=== PATIENT | male | born 2000 | race Caucasian/White ===

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

== ENCOUNTER 2023-07-26 15:17 | Inpatient (IN) | payer BC, OTHER ==
[2023-07-26] MEDS ORDERED: SODIUM CHLORIDE 0.9% 1,000 ML IV ONE (16:10)
[2023-07-26] MEDS ORDERED: SODIUM CHLORIDE 0.9% 500 ML 500 ML IV ONE (16:10)
[2023-07-26 16:31] LABS: Basophils # (A) 0.1 k/uL (0-0.2); Basophils % (A) 1 %; Eosinophils # (A) 0.2 k/uL (0-0.7); Eosinophils % (A) 3 %; HCT 53.7 % (39.0-53.0); HGB 18.9 gm/dL (13.0-17.5); Lymphocytes # (A) 1.5 k/uL (1.0-4.8); Lymphocytes % (A) 19 %; MCH 29.8 pg (25.0-35.0); MCHC 35.3 g/dL (31.0-37.0); MCV 84.4 fL (80.0-100.0); Mean Platelet Volume 7.8; Monocytes # (A) 0.4 k/uL (0-1.0); Monocytes % (A) 5 %; Neutrophils # (A) 5.6 k/uL (1.3-7.7); Neutrophils % (A) 70 %; Platelet Count 326 k/uL (150-450); RBC 6.36 m/uL (4.30-5.90); RDW 12.1 % (11.5-15.5); WBC 7.9 k/uL (3.8-10.6)
--- NOTE | 2023-07-26 16:40 | ED ---
General Adult HPI - General Chief complaint: Recheck/Abnormal Lab/Rx Stated complaint: Dehydration Time Seen by Provider: 07/26/23 15:30 Source: patient, RN notes reviewed, old records reviewed Mode of arrival: ambulatory Limitations: no limitations - History of Present Illness Initial comments: This is a 23-year-old male presents emergency Department from urgent care. Patient went to the urgent care because he was feeling more more fatigued and he became very thirsty over the last few weeks and urinating quite a bit more. At the urgent care and he was told that he had diabetes and his sugar was nonreducible on their meter. Patient was sent in here for new onset diabetes. Patient denies any recent fever chills or cough per patient denies any chest pain difficulty breathing shortest breath. Patient denies any headache per patient denies any abdominal pain patient denies nausea vomiting diarrhea. Patient does have a family history of type 1 diabetes in his mother - Related Data Previous Rx's Medication Instructions Recorded Cyclobenzaprine [Flexeril] 10 mg PO TID PRN #15 tab 08/21/19 Ibuprofen [Motrin] 600 mg PO Q8HR PRN #30 tab 08/21/19 Allergies Allergy/AdvReac Type Severity Reaction Status Date / Time amoxicillin Allergy Unknown Verified 07/26/23 15:21 Childhood Penicillins Allergy Unknown Verified 07/26/23 15:21 Childhood Review of Systems ROS Statement: Those systems with pertinent positive or pertinent negative responses have been documented in the HPI. ROS Other: All systems not noted in ROS Statement are negative. Past Medical History Past Medical History: Asthma History of Any Multi-Drug Resistant Organisms: None Reported Past Surgical History: No Surgical Hx Reported Past Psychological History: No Psychological Hx Reported Smoking Status: Never smoker Past Alcohol Use History: None Reported Past Drug Use History: None Reported General Exam - General Exam Comments Initial Comments: GENERAL: Patient is well-developed and well-nourished. Patient is nontoxic and well- hydrated and is in no acute distress. ENT: Neck is soft and supple. No significant lymphadenopathy is noted. Oropharynx is clear. Dry mucous membranes. Neck has full range of motion without eliciting any pain. EYES: The sclera were anicteric and conjunctiva were pink and moist. Extraocular movements were intact and pupils were equal round and reactive to light. Eyelids were unremarkable. PULMONARY: Unlabored respirations. Good breath sounds bilaterally. No audible rales rhonchi or wheezing was noted. CARDIOVASCULAR: There is a regular rate and rhythm without any murmurs gallops or rubs. ABDOMEN: Soft and nontender with normal bowel sounds. SKIN: Skin is clear with no lesions or rashes and otherwise unremarkable. NEUROLOGIC: Patient is alert and oriented x3. Cranial nerves II through XII are grossly intact. Motor and sensory are also intact. Normal speech, volume and content. Symmetrical smile. MUSCULOSKELETAL: Normal extremities with adequate strength and full range of motion. LYMPHATICS: No significant lymphadenopathy is noted PSYCHIATRIC: Normal psychiatric evaluation. Limitations: no limitations Course Vital Signs 07/26/23 15:19 Temperature 98.1 F Pulse Rate 66 Respiratory 17 Rate Blood Pressure 153/101 O2 Sat by Pulse 98 Oximetry Medical Decision Making - Medical Decision Making EKG is interpreted by myself. EKG shows a sinus rhythm at 62 bpm MD interval 128 QRS interval is 94 QT interval is 411 QTC is 417. Patient has peaked T waves as well as some ST segment elevation relatively diffusely consistent with early re-pole. Patient has no chest pain or difficulty breathing. Was pt. sent in by a medical professional or institution (, PA, SHEET HEATER, urgent care, hospital, or alf...) When possible be specific @ -Sent in by the urgent care Did you speak to anyone other than the patient for history (EMS, parent, family, police, friend...)? What history was obtained from this source @ -No Did you review nursing and triage notes (agree or disagree)? Why? @ -I reviewed and agree with nursing and triage notes Were old charts reviewed (outside hosp., previous admission, EMS record, old EKG, old radiological studies, urgent care reports/EKG's, alf records)? Report findings @ -No old charts were reviewed Differential Diagnosis (chest pain, altered mental status, abdominal pain women, abdominal pain men, vaginal bleeding, weakness, fever, dyspnea, syncope, headache, dizziness, GI bleed, back pain, seizure, CVA, palpatations, mental health, musculoskeletal)? @ -Urinary tract infection, diabetes type 1, diabetes type 2, DKA, polydipsia, dehydration, EKG interpreted by me (3pts min.). @ -As above X-rays interpreted by me (1pt min.). @ -None done CT interpreted by me (1pt min.). @ -None done U/S interpreted by me (1pt. min.). @ -None done What testing was considered but not performed or refused? (CT, X-rays, U/S, labs)? Why? @ -None What meds were considered but not given or refused? Why? @ -None Did you discuss the management of the patient with other professionals (professionals i.e. Dr., PA, SHEET HEATER, lab, RT, psych nurse, director social, hose seamer, teacher, interface control officer, case resource manager)? Give summary @ -I spoke with Dr. Woo she agreed to admit the patient Was smoking cessation discussed for >3mins.? @ -No Was critical care preformed (if so, how long)? @ -5 minutes Were there social determinants of health that impacted care today? How? (Homelessness, low income, unemployed, alcoholism, drug addiction, transportation, low edu. Level, literacy, decrease access to med. care, assisted, rehab)? @ -No Was there de-escalation of care discussed even if they declined (Discuss DNR or withdrawal of care, Hospice)? DNR status @ -No What co-morbidities impacted this encounter? (DM, HTN, Smoking, COPD, CAD, Cancer, CVA, ARF, Chemo, Hep., AIDS, mental health diagnosis, sleep apnea, morbid obesity)? @ -None Was patient admitted / discharged? Hospital course, mention meds given and route, prescriptions, significant lab abnormalities, going to OR and other pertinent info. @ -Patient's blood sugar came back at over 700 patient was started on insulin drip given IV fluids and will be admitted to [facility]. Undiagnosed new problem with uncertain prognosis? @ -No Drug Therapy requiring intensive monitoring for toxicity (Heparin, Nitro, Insulin, Cardizem)? @ -No Were any procedures done? @ -No Diagnosis/symptom? @ -New-onset diabetes Acute, or Chronic, or Acute on Chronic? @ -Acute Uncomplicated (without systemic symptoms) or Complicated (systemic symptoms)? @ -Complicated Side effects of treatment? @ -No Exacerbation, Progression, or Severe Exacerbation? @ -No Poses a threat to life or bodily function? How? (Chest pain, [place], [place], pneumonia, PE, COPD, DKA, ARF, appy, cholecystitis, CVA, Diverticulitis, Homicidal, Suicidal, threat to staff... and all critical care pts) @ -Yes this could lead to significant poor perfusion and end organ dysfunction - Lab Data Result diagrams: 07/26/23 16:15 07/26/23 16:15 Lab Results 07/26/23 07/26/23 07/26/23 Range/Units 16:15 16:15 16:58 WBC 7.9 (3.8-10.6) k/uL RBC 6.36 H (4.30-5.90) m/uL Hgb 18.9 H (13.0-17.5) gm/dL Hct 53.7 H (39.0-53.0) % MCV 84.4 (80.0-100.0) fL MCH 29.8 (25.0-35.0) pg MCHC 35.3 (31.0-37.0) g/dL RDW 12.1 (11.5-15.5) % Plt Count 326 (150-450) k/uL MPV 7.8 Neutrophils % 70 % Lymphocytes % 19 % Monocytes % 5 % Eosinophils % 3 % Basophils % 1 % Neutrophils # 5.6 (1.3-7.7) k/uL Lymphocytes # 1.5 (1.0-4.8) k/uL Monocytes # 0.4 (0-1.0) k/uL Eosinophils # 0.2 (0-0.7) k/uL Basophils # 0.1 (0-0.2) k/uL Sodium 128 L (137-145) mmol/L Potassium 5.3 H (3.5-5.1) mmol/L Chloride 85 L (98-107) mmol/L Carbon Dioxide 22 (22-30) mmol/L Anion Gap 21 mmol/L BUN 23 H (9-20) mg/dL Creatinine 1.12 (0.66-1.25) mg/dL Est GFR (CKD-EPI)AfAm >90 (>60 ml/min/1.73 sqM) Est GFR (CKD-EPI)NonAf >90 (>60 ml/min/1.73 sqM) Glucose 709 H* (74-99) mg/dL Calcium 10.1 (8.4-10.2) mg/dL Total Bilirubin 1.2 (0.2-1.3) mg/dL AST 31 (17-59) U/L ALT 38 (4-49) U/L Alkaline Phosphatase 219 H (38-126) U/L Troponin I <0.012 (0.000-0.034) ng/mL Total Protein 7.8 (6.3-8.2) g/dL Albumin 4.6 (3.5-5.0) g/dL Acetone, Qual Positive (Negative) Critical Care Time Critical Care Time: Yes Total Critical Care Time: 35 Disposition Clinical Impression: New onset type 1 diabetes mellitus, uncontrolled Disposition: ADMITTED IP TO THIS HOSP Referrals: None,Stated [Primary Care Provider] - 1-2 days Time of Disposition: 18:05
[2023-07-26 17:26] LABS: ALT 38 U/L (4-49); AST 31 U/L (17-59); African American GFR (CKD) >90 (>60 ml/min/1.73 sqM); Albumin 4.6 g/dL (3.5-5.0); Alkaline Phosphatase 219 U/L (38-126); Anion Gap 21 mmol/L; Blood Urea Nitrogen 23 mg/dL (9-20); Calcium 10.1 mg/dL (8.4-10.2); Carbon Dioxide 22 mmol/L (22-30); Chloride 85 mmol/L (98-107); Non-African American GFR(CKD) >90 (>60 ml/min/1.73 sqM); Potassium 5.3 mmol/L (3.5-5.1); Sodium 128 mmol/L (137-145); Total Bilirubin 1.2 mg/dL (0.2-1.3); Total Protein 7.8 g/dL (6.3-8.2)
[2023-07-26 17:38] LABS: Glucose 709 mg/dL (74-99)
[2023-07-26] MEDS ORDERED: INSULIN REGULAR BOLUS (FROM DRIP BAG) IV ONE (18:06)
[2023-07-26 18:13] VITALS: RESP 16
[2023-07-26] MEDS ORDERED: SODIUM CHLORIDE 0.9% 1,000 ML IV SCH (18:15)
[2023-07-26] MEDS ORDERED: INSULIN REGULAR 100 UNIT in SODIUM CHLORIDE 0.9% 100 ML IV SCH (18:15)
[2023-07-26 19:04] LABS: ABG Base Excess -5.2 mmol/L; ABG HCO3 21 mmol/L (21-25); ABG Oxygen Saturation 97.2 % (94-97); ABG PCO2 38 mmHg (35-45); ABG PH 7.34 (7.35-7.45); ABG PO2 97 mmHg (83-108); ABG TCO2 22 mmol/L (19-24); Allen Test Performed? Yes
[2023-07-26 19:09] LABS: Appearance,Urine Clear (Clear); Bilirubin,Urine Negative (Negative); Blood,Urine Negative (Negative); Color,Urine Colorless; Glucose,Urine (UA) 4+ (Negative); Leukocyte Esterase,Urine Negative (Negative); Nitrite,Urine Negative (Negative); Protein,Urine Negative (Negative); Urobilinogen,Urine <2.0 mg/dL (<2.0)
[2023-07-26 19:15] LABS: Ketones,Urine 3+ (Negative)
[2023-07-26 19:21] LABS: Glucose,Whole Blood 351 mg/dL (70-110)
[2023-07-26 20:08] LABS: Glucose,Whole Blood 333 mg/dL (70-110)
[2023-07-26 21:06] LABS: African American GFR (CKD) >90 (>60 ml/min/1.73 sqM); Anion Gap 15 mmol/L; Blood Urea Nitrogen 18 mg/dL (9-20); Carbon Dioxide 19 mmol/L (22-30); Chloride 100 mmol/L (98-107); Glucose 272 mg/dL (74-99); Non-African American GFR(CKD) >90 (>60 ml/min/1.73 sqM); Phosphorus 2.8 mg/dL (2.5-4.5); Potassium 3.7 mmol/L (3.5-5.1); Sodium 134 mmol/L (137-145)
[2023-07-26 21:19] LABS: Glucose,Whole Blood 241 mg/dL (70-110)
[2023-07-26] MEDS: D5-0.45% NACL WITH KCL 20MEQ/L 1,000 ML IV SCH (21:43)
[2023-07-26 22:09] LABS: Glucose,Whole Blood 218 mg/dL (70-110)
[2023-07-26 23:07] LABS: Glucose,Whole Blood 232 mg/dL (70-110)
--- NOTE | 2023-07-26 23:36 | P.HPIM ---
History of Present Illness H&P Date: 07/26/23 Patient is a 23-year-old male with a PMH of mild intermittent asthma who presented to the emergency room with complaints of polyuria, polydipsia, thirst, and generalized weakness. Patient has been experiencing these symptoms for the past 1 week. Denies any recent illnesses. Denies any prior history of such symptoms. In the emergency room, the patient's blood glucose was 709, with anion gap 21, sodium 128, potassium 5.3, chloride 85, acetone positive, troponin less than 0.012, and hemoglobin 18.9. She reports feeling better at the time of interview. Also denied experiencing chest discomfort, shortness of breath, fever, chills, cough, nausea, vomiting, abdominal pain, diarrhea. EKG the emergency room revealed sinus rhythm with sinus arrhythmia at [address] segment elevations in inferolateral leads. ED documentation reviewed and case discussed with ED provider. Review of systems: Pertinent positives and negatives as discussed in HPI, a complete review of systems was performed and all other systems are negative. Physical examination: Vital signs reviewed General: non toxic, no distress, appears at stated age, normal weight Derm: no unusual rashes/lesions, warm Head: atraumatic, normocephalic, symmetric Eyes: EOMI, no lid lag, anicteric sclera, pupils equal round reactive to light ENT: Nose and ears atraumatic Neck: No cervical lymphadenopathy, trachea midline, supple Mouth: no lip lesion, mucus membranes moist Cardiovascular: S1S2 reg, no murmur, positive dorsalis pedis pulse bilateral, no edema Lungs: CTA bilateral, no rhonchi, no rales, no accessory muscle use Abdominal: soft, nontender to palpation, no guarding Ext: muscle strength 5 out of 5 in all 4 extremities grossly, no gross muscle atrophy, no contractures, Neuro: CN II-XI grossly intact, no gross focal neuro deficits Psych: Alert, oriented, appropriate affect Assessment: DKA, newly diagnosed diabetes mellitus Hyponatremia, likely pseudo-in setting of hyperglycemia Abnormal EKG, patient denied chest discomfort or shortness of breath Chronic conditions: Mild intermittent asthma Imaging: EKG the emergency room revealed sinus rhythm with sinus arrhythmia at [address] segment elevations in inferolateral leads. Data Review: In the emergency room, the patient's blood glucose was 709, with anion gap 21, sodium 128, potassium 5.3, chloride 85, acetone positive, troponin less than 0.012, and hemoglobin 18.9 Plan: Continue DKA protocol with insulin infusion 0.1 units per kilogram per hour IV fluids with normal saline and D5 half NS once blood sugar improved Monitor electrolytes every 4 hours and blood glucose every hour Diabetes education Patient will need outpatient endocrinology follow-up Replace potassium as needed Patient reports sporadic use of albuterol inhaler DVT prophylaxis: Lovenox subcu The patient is admitted with an anticipated greater than 2 midnight stay for evaluation of DKA CODE STATUS: Full Code Discussed with: Patient Anticipated discharge place: Home Past Medical History Past Medical History: Asthma History of Any Multi-Drug Resistant Organisms: None Reported Past Surgical History: No Surgical Hx Reported Past Anesthesia/Blood Transfusion Reactions: No Reported Reaction Past Psychological History: No Psychological Hx Reported Smoking Status: Never smoker Past Alcohol Use History: None Reported Past Drug Use History: None Reported Medications and Allergies Home Medications Medication Instructions Recorded Confirmed Type No Known Home Medications 07/26/23 07/26/23 History Allergies Allergy/AdvReac Type Severity Reaction Status Date / Time amoxicillin Allergy Unknown Verified 07/26/23 18:09 Childhood Penicillins Allergy Unknown Verified 07/26/23 18:09 Childhood Physical Exam Vitals: Vital Signs Temp Pulse Resp BP Pulse Ox 07/26/23 19:36 98.2 F 84 16 128/70 97 07/26/23 18:05 73 16 132/89 99 07/26/23 15:19 98.1 F 66 17 153/101 98 Intake and Output 07/26/23 07/26/23 07/26/23 06:59 14:59 22:59 Intake Total 14.061 Balance 14.061 Intake: Intake, IV Titration 14.061 Amount Insulin Regular 100 unit 14.061 In Sodium Chloride 0.9% 100 ml @ 0.1 UNITS/KG/HR 5.818 mls/hr IV .[id number] [facility] Rx#:[id number] Other: Weight 57.606 kg Results CBC & Chem 7: 07/26/23 16:15 07/26/23 20:26 Labs: Abnormal Lab Results - Last 24 Hours (Table) 07/26/23 07/26/23 07/26/23 Range/Units 16:15 16:15 18:52 RBC 6.36 H (4.30-5.90) m/uL Hgb 18.9 H (13.0-17.5) gm/dL Hct 53.7 H (39.0-53.0) % ABG pH (7.35-7.45) ABG O2 Saturation (94-97) % Sodium 128 L (137-145) mmol/L Potassium 5.3 H (3.5-5.1) mmol/L Chloride 85 L (98-107) mmol/L Carbon Dioxide (22-30) mmol/L BUN 23 H (9-20) mg/dL Glucose 709 H* (74-99) mg/dL POC Glucose (mg/dL) (70-110) mg/dL Alkaline Phosphatase 219 H (38-126) U/L Urine Glucose (UA) 4+ H (Negative) Urine Ketones 3+ H (Negative) 07/26/23 07/26/23 07/26/23 Range/Units 19:19 20:00 20:03 RBC (4.30-5.90) m/uL Hgb (13.0-17.5) gm/dL Hct (39.0-53.0) % ABG pH 7.34 L (7.35-7.45) ABG O2 Saturation 97.2 H (94-97) % Sodium (137-145) mmol/L Potassium (3.5-5.1) mmol/L Chloride (98-107) mmol/L Carbon Dioxide (22-30) mmol/L BUN (9-20) mg/dL Glucose (74-99) mg/dL POC Glucose (mg/dL) 351 H 333 H (70-110) mg/dL Alkaline Phosphatase (38-126) U/L Urine Glucose (UA) (Negative) Urine Ketones (Negative) 07/26/23 07/26/23 Range/Units 20:26 21:00 RBC (4.30-5.90) m/uL Hgb (13.0-17.5) gm/dL Hct (39.0-53.0) % ABG pH (7.35-7.45) ABG O2 Saturation (94-97) % Sodium 134 L (137-145) mmol/L Potassium (3.5-5.1) mmol/L Chloride (98-107) mmol/L Carbon Dioxide 19 L (22-30) mmol/L BUN (9-20) mg/dL Glucose 272 H (74-99) mg/dL POC Glucose (mg/dL) 241 H (70-110) mg/dL Alkaline Phosphatase (38-126) U/L Urine Glucose (UA) (Negative) Urine Ketones (Negative) Thrombosis Risk Factor Assmnt - Choose All That Apply Any of the Below Risk Factors Present?: No Other Risk Factors: No Other congenital or acquired thrombophilia - If yes, enter type in comment: No Thrombosis Risk Factor Assessment Level: Very Low Risk
[2023-07-26] MEDS: POTASSIUM CHLORIDE ER 20 MEQ TAB.ER PO SCH (23:44)
[2023-07-26] MEDS: POTASSIUM CHLORIDE 10 MEQ in WATER FOR INJECTION 1 100ML.BAG IVPB SCH (23:44)
[2023-07-26 23:56] LABS: Glucose,Whole Blood 175 mg/dL (70-110)
[2023-07-27 00:18] LABS: African American GFR (CKD) >90 (>60 ml/min/1.73 sqM); Anion Gap 7 mmol/L; Blood Urea Nitrogen 17 mg/dL (9-20); Carbon Dioxide 24 mmol/L (22-30); Chloride 104 mmol/L (98-107); Glucose 175 mg/dL (74-99); Non-African American GFR(CKD) >90 (>60 ml/min/1.73 sqM); Potassium 3.4 mmol/L (3.5-5.1); Sodium 135 mmol/L (137-145)
[2023-07-27] MEDS: POTASSIUM CHLORIDE 10 MEQ in WATER FOR INJECTION 1 100ML.BAG IVPB SCH (00:36)
[2023-07-27 01:17] LABS: Glucose,Whole Blood 156 mg/dL (70-110)
[2023-07-27] MEDS: POTASSIUM CHLORIDE ER 20 MEQ TAB.ER PO SCH (01:38)
[2023-07-27 01:59] LABS: Glucose,Whole Blood 210 mg/dL (70-110)
[2023-07-27 03:05] LABS: Glucose,Whole Blood 185 mg/dL (70-110)
[2023-07-27] MEDS: D5-0.45% NACL WITH KCL 20MEQ/L 1,000 ML IV SCH ×2 (03:54→05:44)
[2023-07-27 04:00] LABS: Glucose,Whole Blood 174 mg/dL (70-110)
[2023-07-27 04:50] LABS: African American GFR (CKD) >90 (>60 ml/min/1.73 sqM); Anion Gap 5 mmol/L; Blood Urea Nitrogen 14 mg/dL (9-20); Calcium 8.3 mg/dL (8.4-10.2); Carbon Dioxide 24 mmol/L (22-30); Chloride 106 mmol/L (98-107); Glucose 175 mg/dL (74-99); Non-African American GFR(CKD) >90 (>60 ml/min/1.73 sqM); Potassium 4.4 mmol/L (3.5-5.1); Sodium 135 mmol/L (137-145)
[2023-07-27] MEDS ORDERED: INSULIN NPH 100 UNIT/ML 10 ML VIAL SQ ONE (05:00)
[2023-07-27 05:17] LABS: Glucose,Whole Blood 170 mg/dL (70-110)
[2023-07-27 06:04] LABS: Glucose,Whole Blood 104 mg/dL (70-110)
[2023-07-27] MEDS ORDERED: INSULIN DETEMIR (LEVEMIR) 100 UNIT/ML SYR SQ SCH ×2 (07:00→21:00)
[2023-07-27 07:04] LABS: Glucose,Whole Blood 111 mg/dL (70-110)
[2023-07-27] MEDS: INSULIN ASPART (NovoLOG) 100 UNIT/ML VIAL SQ SCH ×5 (07:07→21:48)
[2023-07-27] MEDS ORDERED: INSULIN ASPART (NovoLOG) 100 UNIT/ML VIAL SQ SCH (07:30)
[2023-07-27 09:33] LABS: Glucose,Whole Blood 183 mg/dL (70-110)
--- NOTE | 2023-07-27 10:14 | P.PN ---
Subjective Progress Note Date: 07/27/23 (seen at 0845) Patient is a 23-year-old male with known mild intermittent asthma who presented to the emergency department from urgent care for polyuria, polydipsia, thirst, and generalized weakness. In the ER he underwent an extensive evaluation was ultimately found to have diabetes mellitus with hyperglycemia. He was started on an insulin drip and arrangements were made for admission. He was take off the isnulin gtt on the morning of 07/27/23 and transitioned to short/long acting insulin. Patient seen and examined at bedside. He reports that he is familiar with diabetes as his mother had IDDM since a baby. She from complications for diabetes when vaishnavi was 17. He did help her with insulin injections and monitoring her sugars. He is felling better today. Denies and chest pain, SOB, nausea or vomiting. He has not complaints other than being tired. He has no PCP at this time and has tried calling a few out in [place] but they are not taking new patients. Vital signs reviewed General: nontoxic, no distress, appears at stated age Cardiovascular: S1S2 reg, no murmur, positive posterior tibial pulse bilateral, Lungs: CTA bilateral, no rhonchi, no rales , no accessory muscle use Abdominal: soft, nontender to palpation, no guarding, no appreciable or ganomegaly Ext: no gross muscle atrophy, no edema b/l lower extremities, no contractures Neuro: CN II-XI grossly intact, no focal neuro deficits Psych: Alert, oriented, appropriate affect Assessment/Plan: New onset DM with hyperglcemia - overnight the patient had received: IV insulin @ 6.8 u/hr shut off at 0545, Inulin NPH 6 units at 0500, Levemir 17 units at 0707, novolog 6 units at 0708 - Given the mutiple different types of isulin administered in the last several hours all with different peaks and current BS of 111 continue with D5 0.45 NS at 150 cc/hr. I discussed with nursing to recheck BS at 0930 - decrease levemir to 10 units for 07/28, d/c fixed dose insulin, continue with SSI - check A1C, follow BS Hypophosphatemia - will improve with increased oral intake, no need for replacement Asthma without exac exacerbation - prn albuterol Imaging: None new Data Review: Labs reviewed from this morning include a basic metabolic profile, phosphorus and troponin which are remarkable for sodium 135, creatinine 0.62, phosphorus 2.3 and glucose 175. DVT prophylaxis: SCDs Anticipated discharge date: in AM Anticipated discharge place: Home This dictation was prepared using [employer] voice recognition software. Though every attempt is made to correct errors during dictation some may still exist. Objective - Vital Signs Vital signs: Vital Signs Temp 97.9 F 07/27/23 04:00 Pulse 71 07/27/23 04:00 Resp 16 07/27/23 04:00 BP 112/76 07/27/23 04:00 Pulse Ox 97 07/27/23 04:00 FiO2 Intake & Output 07/26/23 07/27/23 07/27/23 18:59 06:59 18:59 Intake Total 82.468 Balance 82.468 Weight 57.606 kg 57.606 kg Intake: IV 10 Invasive Line 1 10 Intake, IV Titration 72.468 Amount Insulin Regular 100 unit 72.468 In Sodium Chloride 0.9% 100 ml @ 0.1 UNITS/KG/HR 5.818 mls/hr IV .[id number] [facility] Rx#:[id number] Other: Voiding Method Toilet # Voids 2 - Labs CBC & Chem 7: 07/26/23 16:15 07/27/23 04:24 Labs: Abnormal Lab Results - Last 24 Hours (Table) 07/26/23 07/26/23 07/26/23 Range/Units 16:15 16:15 18:52 RBC 6.36 H (4.30-5.90) m/uL Hgb 18.9 H (13.0-17.5) gm/dL Hct 53.7 H (39.0-53.0) % ABG pH (7.35-7.45) ABG O2 Saturation (94-97) % Sodium 128 L (137-145) mmol/L Potassium 5.3 H (3.5-5.1) mmol/L Chloride 85 L (98-107) mmol/L Carbon Dioxide (22-30) mmol/L BUN 23 H (9-20) mg/dL Creatinine (0.66-1.25) mg/dL Glucose 709 H* (74-99) mg/dL POC Glucose (mg/dL) (70-110) mg/dL Calcium (8.4-10.2) mg/dL Phosphorus (2.5-4.5) mg/dL Alkaline Phosphatase 219 H (38-126) U/L Urine Glucose (UA) 4+ H (Negative) Urine Ketones 3+ H (Negative) 07/26/23 07/26/23 07/26/23 Range/Units 19:19 20:00 20:03 RBC (4.30-5.90) m/uL Hgb (13.0-17.5) gm/dL Hct (39.0-53.0) % ABG pH 7.34 L (7.35-7.45) ABG O2 Saturation 97.2 H (94-97) % Sodium (137-145) mmol/L Potassium (3.5-5.1) mmol/L Chloride (98-107) mmol/L Carbon Dioxide (22-30) mmol/L BUN (9-20) mg/dL Creatinine (0.66-1.25) mg/dL Glucose (74-99) mg/dL POC Glucose (mg/dL) 351 H 333 H (70-110) mg/dL Calcium (8.4-10.2) mg/dL Phosphorus (2.5-4.5) mg/dL Alkaline Phosphatase (38-126) U/L Urine Glucose (UA) (Negative) Urine Ketones (Negative) 07/26/23 07/26/23 07/26/23 Range/Units 20:26 21:00 21:57 RBC (4.30-5.90) m/uL Hgb (13.0-17.5) gm/dL Hct (39.0-53.0) % ABG pH (7.35-7.45) ABG O2 Saturation (94-97) % Sodium 134 L (137-145) mmol/L Potassium (3.5-5.1) mmol/L Chloride (98-107) mmol/L Carbon Dioxide 19 L (22-30) mmol/L BUN (9-20) mg/dL Creatinine (0.66-1.25) mg/dL Glucose 272 H (74-99) mg/dL POC Glucose (mg/dL) 241 H 218 H (70-110) mg/dL Calcium (8.4-10.2) mg/dL Phosphorus (2.5-4.5) mg/dL Alkaline Phosphatase (38-126) U/L Urine Glucose (UA) (Negative) Urine Ketones (Negative) 07/26/23 07/26/23 07/26/23 Range/Units 23:04 23:47 23:54 RBC (4.30-5.90) m/uL Hgb (13.0-17.5) gm/dL Hct (39.0-53.0) % ABG pH (7.35-7.45) ABG O2 Saturation (94-97) % Sodium 135 L (137-145) mmol/L Potassium 3.4 L (3.5-5.1) mmol/L Chloride (98-107) mmol/L Carbon Dioxide (22-30) mmol/L BUN (9-20) mg/dL Creatinine 0.64 L (0.66-1.25) mg/dL Glucose 175 H (74-99) mg/dL POC Glucose (mg/dL) 232 H 175 H (70-110) mg/dL Calcium (8.4-10.2) mg/dL Phosphorus (2.5-4.5) mg/dL Alkaline Phosphatase (38-126) U/L Urine Glucose (UA) (Negative) Urine Ketones (Negative) 07/27/23 07/27/23 07/27/23 Range/Units 01:05 01:56 03:03 RBC (4.30-5.90) m/uL Hgb (13.0-17.5) gm/dL Hct (39.0-53.0) % ABG pH (7.35-7.45) ABG O2 Saturation (94-97) % Sodium (137-145) mmol/L Potassium (3.5-5.1) mmol/L Chloride (98-107) mmol/L Carbon Dioxide (22-30) mmol/L BUN (9-20) mg/dL Creatinine (0.66-1.25) mg/dL Glucose (74-99) mg/dL POC Glucose (mg/dL) 156 H 210 H 185 H (70-110) mg/dL Calcium (8.4-10.2) mg/dL Phosphorus (2.5-4.5) mg/dL Alkaline Phosphatase (38-126) U/L Urine Glucose (UA) (Negative) Urine Ketones (Negative) 1107/27/23 07/27/23 Range/Units 03:57 04:24 04:24 RBC (4.30-5.90) m/uL Hgb (13.0-17.5) gm/dL Hct (39.0-53.0) % ABG pH (7.35-7.45) ABG O2 Saturation (94-97) % Sodium 135 L (137-145) mmol/L Potassium (3.5-5.1) mmol/L Chloride (98-107) mmol/L Carbon Dioxide (22-30) mmol/L BUN (9-20) mg/dL Creatinine 0.62 L (0.66-1.25) mg/dL Glucose 175 H (74-99) mg/dL POC Glucose (mg/dL) 174 H (70-110) mg/dL Calcium 8.3 L (8.4-10.2) mg/dL Phosphorus 2.3 L (2.5-4.5) mg/dL Alkaline Phosphatase (38-126) U/L Urine Glucose (UA) (Negative) Urine Ketones (Negative) 07/27/23 07/27/23 Range/Units 05:03 07:03 RBC (4.30-5.90) m/uL Hgb (13.0-17.5) gm/dL Hct (39.0-53.0) % ABG pH (7.35-7.45) ABG O2 Saturation (94-97) % Sodium (137-145) mmol/L Potassium (3.5-5.1) mmol/L Chloride (98-107) mmol/L Carbon Dioxide (22-30) mmol/L BUN (9-20) mg/dL Creatinine (0.66-1.25) mg/dL Glucose (74-99) mg/dL POC Glucose (mg/dL) 170 H 111 H (70-110) mg/dL Calcium (8.4-10.2) mg/dL Phosphorus (2.5-4.5) mg/dL Alkaline Phosphatase (38-126) U/L Urine Glucose (UA) (Negative) Urine Ketones (Negative)
[2023-07-27 11:00] LABS: Glucose,Whole Blood 220 mg/dL (70-110)
[2023-07-27 11:38] LABS: Glucose,Whole Blood 224 mg/dL (70-110)
[2023-07-27 13:09] LABS: Glucose,Whole Blood 242 mg/dL (70-110)
[2023-07-27 14:14] LABS: Glucose,Whole Blood 406 mg/dL (70-110)
[2023-07-27 16:44] LABS: Glucose,Whole Blood 289 mg/dL (70-110)
[2023-07-27] MEDS ORDERED: MELATONIN 5 MG TABLET PO PRN (18:03)
[2023-07-27] MEDS ORDERED: ALBUTEROL NEBULIZED 2.5 MG/3 ML INHALATION PRN (18:03)
[2023-07-27] MEDS ORDERED: ACETAMINOPHEN TAB 325 MG TAB PO PRN (18:03)
[2023-07-27] MEDS ORDERED: ONDANSETRON 4 MG/2 ML VIAL IVP PRN (18:03)
[2023-07-27] MEDS ORDERED: bisacodyL 5 MG TABLET.DR PO PRN (18:03)
[2023-07-27 20:23] LABS: Glucose,Whole Blood 304 mg/dL (70-110)
[2023-07-28 02:07] LABS: Glucose,Whole Blood 107 mg/dL (70-110)
[2023-07-28 06:01] LABS: Glucose,Whole Blood 127 mg/dL (70-110)
[2023-07-28 06:37] VITALS: TEMP 97.5
[2023-07-28] MEDS: INSULIN ASPART (NovoLOG) 100 UNIT/ML VIAL SQ SCH ×5 (06:38→12:16)
[2023-07-28] MEDS ORDERED: INSULIN DETEMIR (LEVEMIR) 100 UNIT/ML SYR SQ SCH (07:00)
[2023-07-28 09:04] LABS: African American GFR (CKD) >90 (>60 ml/min/1.73 sqM); Anion Gap 7 mmol/L; Blood Urea Nitrogen 14 mg/dL (9-20); Calcium 8.2 mg/dL (8.4-10.2); Carbon Dioxide 25 mmol/L (22-30); Chloride 100 mmol/L (98-107); Glucose 443 mg/dL (74-99); Non-African American GFR(CKD) >90 (>60 ml/min/1.73 sqM); Potassium 4.6 mmol/L (3.5-5.1); Sodium 132 mmol/L (137-145)
[2023-07-28] MEDS ORDERED: INSULIN ASPART (NovoLOG) 100 UNIT/ML VIAL SQ ONE (09:26)
[2023-07-28 09:27] LABS: Glucose,Whole Blood 468 mg/dL (70-110)
[2023-07-28 11:40] LABS: Glucose,Whole Blood 274 mg/dL (70-110)
[2023-07-28 12:21] VITALS: BP 130/84; PULSE 72
--- NOTE | 2023-07-28 13:15 | P.DS ---
Providers Date of admission: 07/26/23 18:06 Expected date of discharge: 07/28/23 Attending physician: Jaylene Woo DO Primary care physician: Stated None Hospital Course: Discharge Diagnosis: New onset DM with hyperglycemia -- possible Type I Hypophosphatemia Asthma without exacerbation Hospital Course: Patient is a 23-year-old male with known mild intermittent asthma who presented to the emergency department from urgent care for polyuria, polydipsia, thirst, and generalized weakness. In the ER he underwent an extensive evaluation was ultimately found to have diabetes mellitus with hyperglycemia. He was started on an insulin drip and arrangements were made for admission. He was take off the isnulin gtt on the morning of 07/27/23 and transitioned to short/long acting insulin. He did have some relative hypoglycemia which improved. His A1C came back at 11. His sugars remained stable and he was determined stable for discharge home. Follow-up: He will see Dr. Ledezma on 08/02. He was given a glucometer on discharge as well as a prescription was sent for a glucometer and testing supplies to go to his home. He was given the following insturctions: Insulin Instructions: Check your blood sugars before meals and make a log to bring to your appointment. Levemir 15 units at night Novolog with meals (if your blood sugar is greater than 110 before the meal) Morning (8 am)/small meals: 3 units Lunch/dinner (larger meals): 4 units Snacks: 2 units If you are eating and your pre-meal blood sugar is between 90-110 take half your usual dose, if your pre-meal blood sugar is <90 please do not take insulin. Special Instructions: Signs of hypoglyemia include confusion, sweating, and nausea. Please keep some hard candy in your pocket for if this occurs. If you have issues with your blood sugar before your appointment you can call [phone] Patient seen and examined at bedside. He is doing well. No nausea no vomiting no chest pain or shortness of breath. We had a very long discussion regarding his current eating schedule, signs and symptoms of hypoglycemia, hot inject insulin, and who to reach out to with questions. All questions answered. Vital signs reviewed and stable. General: nontoxic, no distress, appears at stated age Cardiovascular: S1S2 reg, no murmur, positive posterior tibial pulse bilateral, Lungs: CTA bilateral, no rhonchi, no rales , no accessory muscle use Abdominal: soft, nontender to palpation, no guarding, no appreciable organomegaly Ext: no gross muscle atrophy, no edema b/l lower extremities, no contractures Neuro: CN II-XI grossly intact, no focal neuro deficits Psych: Alert, oriented, appropriate affect A total of 65 minutes of time were spent preparing this complex discharge summary. Patient was discharged on 07/28/23. This dictation was prepared using [employer] voice recognition software. Though every attempt is made to correct errors during dictation some may still exist. Plan - Discharge Summary Discharge Rx Participant: No New Discharge Prescriptions: New Insulin Lispro [humaLOG Kwikpen] 4 unit SQ ACHS #5 pen Insulin Detemir [Levemir Flexpen] 10 units SQ HS #5 pen Discharge Medication List Insulin Detemir [Levemir Flexpen] 10 units SQ HS #5 pen 07/27/23 [Rx] Insulin Lispro [humaLOG Kwikpen] 4 unit SQ ACHS #5 pen 07/27/23 [Rx] Follow up Appointment(s)/Referral(s): Bran Ledezma MD [REFERRING] - 08/02/23 10:00 am (Please arrive at 9:40 for new patient appointment. Office has sent you an email for New Patient Paperwork ) None,Stated [Primary Care Provider] - 1-2 days Patient Instructions/Handouts: Type 1 Diabetes in Adults: New Diagnosis (GEN), Hypoglycemia in a Person with Diabetes (GEN), Basic Carbohydrate Counting (DC), Meal Planning with the Plate Method (DC), Managing Diabetes During Sick Days (DC) Activity/Diet/Wound Care/Special Instructions: Activity: As tolerated Diet: Consistent carb Insulin Instructions: Check your blood sugars before meals and make a log to bring to your appointment. Levemir 15 units at night Novolog with meals (if your blood sugar is greater than 110 before the meal) Morning (8 am)/small meals: 3 units Lunch/dinner (larger meals): 4 units Snacks: 2 units If you are eating and your pre-meal blood sugar is between 90-110 take half your usual dose, if your pre-meal blood sugar is <90 please do not take insulin. Special Instructions: Signs of hypoglyemia include confusion, sweating, and nausea. Please keep some hard candy in your pocket for if this occurs. If you have issues with your blood sugar before your appointment you can call [phone] [email or web address] To complete to carb counting [email or web address]-evrdmdcf-cdp-[email or web address]-aorfffgl-[email or web address]/znbiiyuki-zwj-[email or web address] nstructions/vfcitegy-guwkaxu-rkjlpbjkl-videos Reynaldo Moya Diabetic education: [phone]. Discharge Disposition: HOME SELF-CARE
[2023-07-28 14:52] VITALS: BMI 18.2
--- NOTE | 2023-07-29 16:19 | CDI ---
Documentation Clarification Form Date: 07/29/2023 04:06:58 PM From: Radha Bailon RN, CCDS Email: [email or web address] Admit Date: 07/26/2023 06:06:00 PM Patient Name: Ortega Valdez Visit Number: [id number] Discharge Date: 07/28/2023 03:43:00 PM ATTENTION: The Clinical Documentation Specialists (CDI) and [facility] Coding Staff appreciate your assistance in clarifying documentation. Please respond to the clarification below the line at the bottom and electronically sign. The CDI & [facility] Coding staff will review the response and follow-up if needed. Please note: Queries are made part of the Legal Health Record. If you have any questions, please contact the author of this message via ITS. Dr. Jaylene Woo Patient has a documented BMI of 18.6. Additional clarification is requested. History/Risk Factors: 23 year old with asthma. Presented to the ED with polyuria, polydipsia, thirst and weakness. Blood glucose was 709. Admitted with DKA, newly diagnosed diabetes mellitus. Clinical Indicators: Patients weight is 57 kg Patients height is 5ft 10in Calculated BMI is 18.2 Discharge summary: "New onset DM with hyperglycemia, possible Type I." Treatments: Carbohydrate modified diet, Glucerna BID 07/28 Nutritional Education; Diabetic diet and teaching with patient verbalizing understanding per RD. 07/28 Dietary Consult: underweight, unintended weight loss Please clarify, is there is an additional diagnosis that is clinically appropriate for this patient? [ x ] Underweight [ ] Other, please specify [ ] Unable to determine MTDD
== END 2023-07-28 15:43 | disposition home or self-care (01) | DRG 638 ==
LOC: EC 15:17 → 3SCARD 18:06
PROVIDERS: ADMIT Internal Medicine; ATTEND Internal Medicine
DX: E10.10 Type 1 diabetes mellitus with ketoacidosis without coma (principal); Z68.1 Body mass index [BMI] 19.9 or less, adult; E86.0 Dehydration; J45.20 Mild intermittent asthma, uncomplicated; R94.31 Abnormal electrocardiogram [ECG] [EKG]; R63.6 Underweight; E83.39 Other disorders of phosphorus metabolism; E10.649 Type 1 diabetes mellitus with hypoglycemia without coma; Z28.310 Unvaccinated for COVID-19; Z79.899 Other long term (current) drug therapy; Z88.0 Allergy status to penicillin
CPT/HCPCS: 36415; 36600; 80048; 80051; 80053; 81003; 82009; 82565; 82805; 82947; 83036; 84100; 84484; 84520; 85025; 93005; 96360; 96361; 99291

== ENCOUNTER → 2024-12-26 | Outpatient (CLI) | payer BC ==
--- NOTE | 2024-12-27 06:58 | CA ---
Transthoracic Echo Report Name: Ortega Valdez Age: 24 Gender: M : 2000 Exam Date: 12/26/2024 12:54 Exam Location: [facility] Ht (in): 70 Wt (lb): 140 Ordering Physician: Bran Ledezma DO Attending/Referring Phys: Bran Ledezma DO [employer] Charity Coley JACKLYN Procedure CPT: Indications: R00.2 palpitations Cardiac Hx: Technical Quality: Good Contrast 1: Total Dose (mL): Contrast 2: Total Dose (mL): MEASUREMENTS (Male / Female) Normal Values 2D ECHO LV Diastolic Diameter PLAX 4.4 cm 4.2 - 5.9 / 3.9 - 5.3 cm LV Systolic Diameter PLAX 3.0 cm IVS Diastolic Thickness 0.6 cm 0.6 - 1.0 / 0.6 - 0.9 cm LVPW Diastolic Thickness 0.7 cm 0.6 - 1.0 / 0.6 - 0.9 cm LV Relative Wall Thickness 0.3 LVOT Diameter 1.8 cm LV Diastolic Volume MOD BP 102.0 cm??? 67 - 155 / 56 - 104 cm??? LV Systolic Volume MOD BP 40.9 cm??? 22 - 58 / 19 - 49 cm??? LV Ejection Fraction MOD BP 59.9 % >= 55 % LV Cardiac Index MOD BP 2322.5 cm???/min???m??? LV Diastolic Volume MOD 4C 106.2 cm??? LV Systolic Volume MOD 4C 41.0 cm??? LV Ejection Fraction MOD 4C 61.4 % LV Cardiac Index MOD 4C 2478.6 cm???/min???m??? LV Diastolic Length 4C 8.6 cm LV Systolic Length 4C 6.8 cm LV Diastolic Volume MOD 2C 98.1 cm??? LV Systolic Volume MOD 2C 36.9 cm??? LV Ejection Fraction MOD 2C 62.4 % LV Cardiac Index MOD 2C 2323.1 cm???/min???m??? LV Diastolic Length 2C 8.6 cm LV Systolic Length 2C 7.5 cm LA Volume 31.4 cm??? 18 - 58 / 22 - 52 cm??? LA Volume Index 17.8 cm???/m??? 16 - 28 cm???/m??? DOPPLER AV Peak Velocity 103.2 cm/s AV Peak Gradient 4.3 mmHg AV Mean Velocity 69.0 cm/s AV Mean Gradient 2.1 mmHg AV Velocity Time Integral 18.9 cm LVOT Peak Velocity 100.8 cm/s LVOT Peak Gradient 4.1 mmHg LVOT Velocity Time Integral 17.4 cm LVOT Stroke Volume 44.9 cm??? LVOT Stroke Volume Index 25.1 ml/m??? LVOT Cardiac Index 1707.3 cm???/min???m??? AV Area Cont Eq vti 2.4 cm??? AV Area Cont Eq pk 2.5 cm??? MV Area PHT 3.1 cm??? Mitral E Point Velocity 65.1 cm/s Mitral A Point Velocity 43.1 cm/s Mitral E to A Ratio 1.5 MV Deceleration Time 241.2 ms PV Peak Velocity 103.3 cm/s PV Peak Gradient 4.3 mmHg FINDINGS Left Ventricle Left ventricular ejection fraction is estimated at 60 %. Left ventricular cavity size normal. Left ventricular wall thickness normal. No obvious regional wall motion abnormalities. Right Ventricle Normal right ventricular size and function. Unable to estimate the right ventricular systolic pressure. Right Atrium Normal right atrial size. Left Atrium Normal left atrial size. Mitral Valve Structurally normal mitral valve. No evidence for mitral valve prolapse. No mitral stenosis. Trace mitral regurgitation. Aortic Valve Trileaflet aortic valve. No aortic valve stenosis or regurgitation. Tricuspid Valve Structurally normal tricuspid valve. No tricuspid stenosis. Trace tricuspid regurgitation. Pulmonic Valve Structurally normal pulmonic valve. No pulmonic stenosis. Trace pulmonic regurgitation. Pericardium No pericardial effusion. Aorta Normal size aortic root and proximal ascending aorta. CONCLUSIONS Normal biventricular dimension and systolic function Trileaflet aortic valve with no stenosis or regurgitation Structurally normal mitral valve The pulmonary artery systolic pressure was not calculated No pericardial effusion Normal aortic root and proximal ascending aorta Previewed by: Dr. Tom Rios MD (Electronically Signed) Final Date: 27 December 2024 06:58
== END | disposition home or self-care (01) ==
LOC: RADECHMAIN 12:47
PROVIDERS: ATTEND Internal Medicine
DX: R00.2 Palpitations (principal); I07.1 Rheumatic tricuspid insufficiency; I37.1 Nonrheumatic pulmonary valve insufficiency; I34.0 Nonrheumatic mitral (valve) insufficiency
CPT/HCPCS: 93225; 93306